=== PATIENT | male | born 1985 | race Caucasian/White ===

== ENCOUNTER 2016-05-21 15:08 | Emergency (ER) | payer OTHER ==
[~2016-05-21] VITALS: Ht 165.1 cm; Wt 87.4 kg
[2016-05-21 15:14] VITALS: TEMP 37.4; Ht 165.1 cm; Wt 87.4 kg
[2016-05-21] MEDS ORDERED: KETOROLAC TROMETHAMINE 60 MG/2 ML VIAL IM STA (16:10)
[2016-05-21] MEDS ORDERED: IBUP-1450 PO (16:43)
[2016-05-21] MEDS ORDERED: CYCL10TA6 PO ×2 (16:44→17:09)
[2016-05-21] MEDS ORDERED: CLR10 PO (16:45)
--- NOTE | 2016-05-21 16:58 | DIAGNOSTIC IMAGING REPORT ---
LEFT FOREARM 3 VIEWS HISTORY: Proximal left forearm pain. COMPARISON: None. FINDINGS: There is no fracture or dislocation. Soft tissues are unremarkable. No radiopaque foreign bodies. IMPRESSION: No fractures. Electronically signed by: Erickson Monge M.D. 05/21/2016 4:56 PM Dictated Date/Time: 05/21/2016 4:52 PM
[2016-05-21] MEDS ORDERED: PRED50TA PO (17:09)
--- NOTE | 2016-05-21 17:10 | EMERGENCY ROOM VISIT NOTE ---
ED Visit Note First contact with patient: 15:59 Chief Complaint: LEFT Arm Pain History of Present Illness: Patient is a 30-year-old male who presents to the emergency Department this evening for evaluation of his LEFT arm pain. He reports that he was seen at the [facility] emergency Department a few weeks ago for the same symptoms. He was placed on Flexeril which did seem to help his symptoms. He return to work and has been doing well up until today. He noticed increasing pain after his lunch break to the lateral surface of the LEFT upper forearm. He reports a spasm-like pain which feels better with his arm flexed to his side. He denies any numbness or tingling into his fingers. He reports no trauma to the affected area. He has not sought orthopedic evaluation to this point. He had no imaging studies performed of the arm. The patient rates his current discomfort as a 5/10. He is tried nothing for symptoms to this point. He denies any fevers, chills, headaches, distance, neck pain, or numbness/weakness into the extremities. Medications: No current medications. Allergies: No known allergies. PMH: No pertinent past medical history. SHx: Patient is a 30-year-old male who lives locally. ROS: All pertinent positive and negative review of systems are appropriately documented in the History of Present Illness. Physical Exam: VITAL SIGNS - Vital signs and nursing notes were reviewed. GENERAL - 30-year-old male appearing his stated age and in noticeable discomfort throughout the exam. MUSCULOSKELETAL - arm clenched in flexion for comfort. Active ROM of the LEFT wrist was limited in all directions. Point tenderness at the insertion point over the lateral epicondyle. Compartments soft and malleable to palpation. No palpable cords. No erythema, edema, or ecchymosis. Full range of motion of the affected extremity appreciated. 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 NEUROLOGIC - SENSORY: Spinothalamic tract was found to be intact with ability to discriminate sharp versus dull sensation at the level of the LEFT elbow down to the fingertips. No sensory deficits of the dorsal column were appreciated utilizing light touch for evaluation. VASCULAR - Capillary refill was brisk. +3/5 radial pulse palpated. IMAGING: LEFT FOREARM 3 VIEWS HISTORY: Proximal left forearm pain. COMPARISON: None. FINDINGS: There is no fracture or dislocation. Soft tissues are unremarkable. No radiopaque foreign bodies. IMPRESSION: No fractures. ED Course: Patient was seen and evaluated by myself. The patient was treated with 60 mg Toradol intramuscularly. X-ray of the forearm was obtained. Imaging results as above. Imaging results reviewed with the patient who acknowledges understanding. The patient was educated on using a splint that he could obtain an outpatient setting for his lateral epicondylitis. The patient was encouraged to follow-up with surgery from today's visit. He will replace a short course of steroids and Flexeril. The patient was educated on worrisome symptoms for return visit to the emergency department. Patient discharged home in good condition. In the evaluation and treatment of this patient, the following differential diagnoses were considered: Wrist Sprain, Wrist Fracture, Wrist Dislocation, Scapholunate Dissociation, Carpal Fracture, Metacarpal Fracture, Radial Styloid Process Fracture, Ulnar Styloid Process Fracture, or Carpal Tunnel Syndrome. Impression: LEFT Forearm Pain - Lateral Epicondylitis Discharge Instructions: You have been treated in the Emergency Department for Lateral Epicondylitis - Tennis Elbow. You have been prescribed Prednisone 50 mg to be taken orally once a day for the next 5 days. This is an anti-inflammatory medicine to be used to help minimize your symptoms. You should take the COMPLETE course of the medication. You have been prescribed Flexeril (cyclobenzaprine) 1-2 tabs orally, three times per day. Do NOT exceed 30 mg (6 tabs) per day. Take your first dose at bedtime as it can make you drowsy. Always take all medications as prescribed. For pain control, you can use the following yecw-wzh-vzmaflx medicines (if >12 yo): - Regular strength (325mg/tab) Tylenol (acetaminophen) 2 tabs every 4-6 hours as needed. Do not exceed 12 tablets in a 24 hour period. Avoid taking more than 4 grams (4000 mg) of Tylenol per day. This includes any other sources of acetaminophen you may take on a regular basis. - Regular strength (200 mg/tab) Advil (ibuprofen) 1-2 tabs every 4-6 hours as needed. Do not exceed a dose of 3200 mg per day. If this is a recent injury (<24 hrs), ice can be applied to the area of pain for the first 3 days to help decrease pain and inflammation. Please use splint as discussed which you can find at any pharmacy. Follow-up with orthopedic surgery if your symptoms are not improving over the next week. Return to the Emergency Department if your current symptoms worsen despite treatment course outlined above, or if you develop any of the following symptoms : intractable pain despite aforementioned treatment course or new onset of numbness or tingling of the fingers. Current/Historical Medications Scheduled Cyclobenzaprine Hcl (Flexeril), 10 MG PO TID Prednisone (Prednisone), 50 MG PO DAILY Scheduled PRN Cyclobenzaprine Hcl (Flexeril), 10 MG PO BID PRN for SPASMS Ibuprofen (Motrin), 600 MG PO TID PRN for Pain Loratadine (Claritin), 10 MG PO DAILY PRN for ALLERGIC REACTION Allergies Coded Allergies: NO KNOWN DRUG ALLERGIES (Verified Allergy, Unknown, NKDA, 05/21/16) Vital Signs Date Time Temp Pulse Resp B/P Pulse Ox O2 Delivery O2 Flow Rate FiO2 05/21/16 17:29 95 18 139/93 99 05/21/16 15:14 37.4 95 20 159/104 98 Room Air Medications Administered Medications (Trade) Dose Ordered Sig/Jacki Route Start Time Stop Time Status Last Admin Dose Admin Ketorolac Tromethamine (Toradol Inj) 60 mg NOW STAT IM 05/21/16 16:10 05/21/16 16:11 DC 05/21/16 16:44 60 MG Departure Information Impression Primary Impression: Arm pain, left Additional Impression: Lateral epicondylitis (tennis elbow) Dispostion Home / Self-Care Condition GOOD Prescriptions Prednisone (Prednisone) 50 Mg Tab 50 MG PO DAILY for 5 Days, #5 TAB Prov: Mickey Castrejon PA-C 05/21/16 Cyclobenzaprine Hcl (FLEXERIL) 10 Mg Tab 10 MG PO TID for 5 Days, #15 TAB Prov: Mickey Castrejon PA-C 05/21/16 Referrals No Doctor, Assigned (PCP) Patient Instructions Elbow Rito Hercules, [facility] Additional Instructions You have been treated in the Emergency Department for Lateral Epicondylitis - Tennis Elbow. You have been prescribed Prednisone 50 mg to be taken orally once a day for the next 5 days. This is an anti-inflammatory medicine to be used to help minimize your symptoms. You should take the COMPLETE course of the medication. You have been prescribed Flexeril (cyclobenzaprine) 1-2 tabs orally, three times per day. Do NOT exceed 30 mg (6 tabs) per day. Take your first dose at bedtime as it can make you drowsy. Always take all medications as prescribed. For pain control, you can use the following lknm-sni-uymcbna medicines (if >12 yo): - Regular strength (325mg/tab) Tylenol (acetaminophen) 2 tabs every 4-6 hours as needed. Do not exceed 12 tablets in a 24 hour period. Avoid taking more than 4 grams (4000 mg) of Tylenol per day. This includes any other sources of acetaminophen you may take on a regular basis. - Regular strength (200 mg/tab) Advil (ibuprofen) 1-2 tabs every 4-6 hours as needed. Do not exceed a dose of 3200 mg per day. If this is a recent injury (<24 hrs), ice can be applied to the area of pain for the first 3 days to help decrease pain and inflammation. Please use splint as discussed which you can find at any pharmacy. Follow-up with orthopedic surgery if your symptoms are not improving over the next week. Return to the Emergency Department if your current symptoms worsen despite treatment course outlined above, or if you develop any of the following symptoms : intractable pain despite aforementioned treatment course or new onset of numbness or tingling of the fingers. Problem Qualifiers Additional Impression: Lateral epicondylitis (tennis elbow) Laterality: left Qualified Codes: M77.12 - Lateral epicondylitis, left elbow
[2016-05-21 17:29] VITALS: BP 139/93; PULSE 95; O2SAT 99
== END 2016-05-21 17:30 | disposition home or self-care (01) ==
LOC: C.EDB 15:10 → C.EDD 17:30
DX: M77.12 Lateral epicondylitis, left elbow (principal)